=== PATIENT | female | born 1940 | race Two or more races ===

== ENCOUNTER 2022-08-28 22:51 | Inpatient (IN) | payer OTHER ==
[~2022-08-28] VITALS: Ht 152.4 cm; Wt 62.2 kg
[2022-08-29] VITALS (8 sets, daily range): BP systolic 128–190; BP diastolic 46–67
[2022-08-29] MEDS ORDERED: ACETAMINOPHEN 325 MG TAB PO PRN (04:15)
[2022-08-29] MEDS ORDERED: ONDANSETRON HCL 4 MG/2 ML VIAL IV PRN (04:15)
[2022-08-29] MEDS ORDERED: DEXTROSE (50%) 50ML SYRG IV PRN ×2 (04:15→09:45)
[2022-08-29] MEDS ORDERED: ENOXAPARIN SOD 60 MG/0.6 ML SYRINGE SC ONE (05:00)
[2022-08-29 06:07] LABS: Basophils # (auto) 0 10 ^3/uL (0-0.2); Basophils % (auto) 0.5 % (0.0-2.0); Eosinophils # (auto) 0.1 10 ^3/uL (0-0.8); Eosinophils % (auto) 2.1 % (0.0-7.0); Hematocrit 36.8 % (36.0-46.0); Hemoglobin 12.2 g/dL (12.2-16.2); Lymphocytes # (auto) 2.5 10 ^3/uL (0.4-5.4); Lymphocytes % (auto) 36.6 % (10.0-50.0); Mean Corpuscular Hemoglobin 29.5 pg (28.0-32.0); Mean Corpuscular Hgb Conc. 33.3 g/dL (32.0-36.0); Mean Corpuscular Volume 88.6 fL (80.0-100.0); Monocytes # (auto) 0.3 10 ^3/uL (0-1.3); Monocytes % (auto) 4.5 % (0.0-12.0); Neutrophils # (auto) 3.9 10 ^3/uL (1.6-8.6); Neutrophils % (auto) 56.3 % (37.0-80.0); Red Blood Cells 4.15 10^6/uL (4.0-5.20); Red Cell Distribution Width 12.3 % (11.8-14.3); White Blood Cell 6.9 10^3/uL (4.4-10.8)
[2022-08-29 06:29] LABS: BUN/Creatinine Ratio 19.1; Calcium 9.6 mg/dL (8.5-10.1); Potassium 3.8 mmol/L (3.5-5.1)
[2022-08-29] MEDS: SODIUM CHLORIDE 0.9% 1,000 ML IV SCH ×2 (06:37→21:04)
[2022-08-29] MEDS ORDERED: InsuLIN REG 1unit/0.01ml Soln (100units/ml) SC SCH ×2 (07:00→22:00)
[2022-08-29] MEDS ORDERED: ACCU-CHEK COMFORT CURVE STRIP VI SCH (07:00)
[2022-08-29] MEDS: HYDROcodone-ACET 5/325MG TAB PO PRN (08:38)
[2022-08-29] MEDS ORDERED: ENOXAPARIN SOD 60 MG/0.6 ML SYRINGE SC SCH ×2 (10:00)
[2022-08-29 10:24] LABS: Cholesterol 209 mg/dL (< 200); HDL Cholesterol 44 mg/dL (40-59); LDL Cholesterol 129 mg/dL (< 100); Triglycerides 269 mg/dL (< 150)
[2022-08-29 10:28] LABS: Urine Bacteria FEW /hpf (None Seen); Urine Blood Negative /uL (Negative); Urine Specific Gravity 1.007 (1.001-1.035); Urine WBC 6 /hpf (0 - 5)
[2022-08-29] MEDS: GABAPENTIN 300 MG CAP PO SCH ×2 (11:25→22:16)
[2022-08-29] MEDS: PANTOPRAZOLE 40 MG TAB PO SCH (11:25)
[2022-08-29] MEDS: SPIRONOLACTONE 25 MG TAB PO SCH (11:26)
[2022-08-29] MEDS: METOPROLOL SUCCINATE XL 50 MG TAB PO SCH (11:26)
[2022-08-29] MEDS: ACCU-CHEK COMFORT CURVE STRIP VI SCH ×3 (11:27→22:10)
[2022-08-29] MEDS: InsuLIN REG 1unit/0.01ml Soln (100units/ml) SC SCH ×3 (11:43→22:00)
[2022-08-29 12:05] LABS: INR 1.13 (0.9-1.15); Partial Thromboplastin Time 30.8 sec (24.6-33.4)
[2022-08-29] MEDS: hydrALAZINE HCL 20 MG/ML VL IV PRN ×2 (13:02→22:16)
[2022-08-29] MEDS: ATORVASTATIN 20 MG TAB PO SCH (22:16)
[2022-08-30 05:00] VITALS: BP 132/51
[2022-08-30 05:47] LABS: Basophils # (auto) 0 10 ^3/uL (0-0.2); Basophils % (auto) 0.7 % (0.0-2.0); Eosinophils # (auto) 0.1 10 ^3/uL (0-0.8); Eosinophils % (auto) 1.9 % (0.0-7.0); Hematocrit 32.7 % (36.0-46.0); Hemoglobin 11.5 g/dL (12.2-16.2); Lymphocytes # (auto) 2.2 10 ^3/uL (0.4-5.4); Lymphocytes % (auto) 42.2 % (10.0-50.0); Mean Corpuscular Hemoglobin 30.9 pg (28.0-32.0); Mean Corpuscular Hgb Conc. 35.2 g/dL (32.0-36.0); Mean Corpuscular Volume 87.6 fL (80.0-100.0); Monocytes # (auto) 0.2 10 ^3/uL (0-1.3); Monocytes % (auto) 4.7 % (0.0-12.0); Neutrophils # (auto) 2.7 10 ^3/uL (1.6-8.6); Neutrophils % (auto) 50.5 % (37.0-80.0); Red Blood Cells 3.73 10^6/uL (4.0-5.20); Red Cell Distribution Width 12.2 % (11.8-14.3); White Blood Cell 5.3 10^3/uL (4.4-10.8)
[2022-08-30 06:11] LABS: Albumin 3.4 g/dL (3.4-5.0); Calcium 8.8 mg/dL (8.5-10.1); Potassium 3.7 mmol/L (3.5-5.1)
[2022-08-30 06:15] LABS: BUN/Creatinine Ratio 15.8; Bilirubin, Total 1.9 mg/dL (0.2-1.0)
[2022-08-30] MEDS: ACCU-CHEK COMFORT CURVE STRIP VI SCH ×4 (06:28→22:25)
[2022-08-30] MEDS: InsuLIN REG 1unit/0.01ml Soln (100units/ml) SC SCH ×4 (06:28→22:28)
[2022-08-30] MEDS: HYDROcodone-ACET 5/325MG TAB PO PRN ×2 (06:35→22:26)
[2022-08-30] MEDS ORDERED: EMPA1TAB3 PO (10:01)
[2022-08-30] MEDS ORDERED: ROSU20TA14 PO (10:02)
[2022-08-30] MEDS ORDERED: METO-159 PO (10:03)
[2022-08-30] MEDS ORDERED: CLOP75TA70 PO (10:03)
[2022-08-30] MEDS ORDERED: GABA300C10 PO (10:05)
[2022-08-30] MEDS ORDERED: SPIR25TA8 PO (10:06)
[2022-08-30] MEDS ORDERED: METF-370 PO (10:06)
[2022-08-30] MEDS ORDERED: GLIP10TA9 PO (10:07)
[2022-08-30] MEDS: METOPROLOL SUCCINATE XL 50 MG TAB PO SCH (10:09)
[2022-08-30] MEDS: PANTOPRAZOLE 40 MG TAB PO SCH (10:09)
[2022-08-30] MEDS: SPIRONOLACTONE 25 MG TAB PO SCH (10:10)
[2022-08-30] MEDS: GABAPENTIN 300 MG CAP PO SCH ×2 (10:10→22:24)
[2022-08-30] MEDS ORDERED: INSU1INJ3 SC (10:14)
[2022-08-30] MEDS: DOCUSATE SOD 100 MG CAP PO PRN (10:37)
[2022-08-30] MEDS: hydrALAZINE HCL 20 MG/ML VL IV PRN ×2 (12:27→22:25)
[2022-08-30] MEDS: SODIUM CHLORIDE 0.9% 1,000 ML IV SCH (13:35)
[2022-08-30 14:15] VITALS: BP 162/58
[2022-08-30 18:04] VITALS: BP 162/58
[2022-08-30 22:00] VITALS: BP 170/56
[2022-08-30] MEDS: ATORVASTATIN 20 MG TAB PO SCH (22:24)
[2022-08-31 05:00] VITALS: BP 169/59
[2022-08-31] MEDS: ACCU-CHEK COMFORT CURVE STRIP VI SCH ×4 (05:59→21:55)
[2022-08-31] MEDS: SODIUM CHLORIDE 0.9% 1,000 ML IV SCH ×2 (05:59→22:55)
[2022-08-31] MEDS: EMPAGLIFLOZIN 10 MG TAB PO SCH (06:27)
[2022-08-31] MEDS: InsuLIN REG 1unit/0.01ml Soln (100units/ml) SC SCH ×4 (06:27→22:04)
[2022-08-31] MEDS: hydrALAZINE HCL 20 MG/ML VL IV PRN ×3 (06:28→21:55)
[2022-08-31] MEDS: HYDROcodone-ACET 5/325MG TAB PO PRN ×2 (06:29→08:48)
[2022-08-31 08:00] VITALS: BP 147/55
[2022-08-31] MEDS: MORPHINE SULFATE INJ 2 MG/ml SYRG IV PRN ×2 (08:54→12:57)
[2022-08-31] MEDS: SPIRONOLACTONE 25 MG TAB PO SCH (10:15)
[2022-08-31] MEDS: GABAPENTIN 300 MG CAP PO SCH ×2 (10:15→21:54)
[2022-08-31] MEDS: PANTOPRAZOLE 40 MG TAB PO SCH (10:16)
[2022-08-31] MEDS: METOPROLOL SUCCINATE XL 50 MG TAB PO SCH (10:16)
[2022-08-31] MEDS: DOCUSATE SOD 100 MG CAP PO PRN (10:17)
[2022-08-31] MEDS: LISINOPRIL 10 MG TAB PO SCH (10:17)
[2022-08-31 14:42] VITALS: BP 184/57
[2022-08-31 17:40] VITALS: BP 142/54
[2022-08-31] MEDS: ATORVASTATIN 20 MG TAB PO SCH (21:54)
[2022-08-31 22:00] VITALS: BP 153/63
[2022-09-01] VITALS (13 sets, daily range): BP systolic 101–165; BP diastolic 49–60
[2022-09-01 05:35] LABS: Basophils # (auto) 0 10 ^3/uL (0-0.2); Basophils % (auto) 0.5 % (0.0-2.0); Eosinophils # (auto) 0.2 10 ^3/uL (0-0.8); Eosinophils % (auto) 2.6 % (0.0-7.0); Hematocrit 32.8 % (36.0-46.0); Hemoglobin 11.5 g/dL (12.2-16.2); Lymphocytes # (auto) 2.2 10 ^3/uL (0.4-5.4); Lymphocytes % (auto) 36.1 % (10.0-50.0); Mean Corpuscular Hemoglobin 30.7 pg (28.0-32.0); Mean Corpuscular Volume 87.7 fL (80.0-100.0); Monocytes # (auto) 0.4 10 ^3/uL (0-1.3); Monocytes % (auto) 6.2 % (0.0-12.0); Neutrophils # (auto) 3.4 10 ^3/uL (1.6-8.6); Neutrophils % (auto) 54.6 % (37.0-80.0); Nucleated Red Blood Cells % 0.1 %; Red Blood Cells 3.74 10^6/uL (4.0-5.20); Red Cell Distribution Width 12.4 % (11.8-14.3); White Blood Cell 6.2 10^3/uL (4.4-10.8)
[2022-09-01 05:57] LABS: INR 1.11 (0.9-1.15); Partial Thromboplastin Time 26.2 sec (24.6-33.4)
[2022-09-01 06:00] LABS: Albumin 3.4 g/dL (3.4-5.0); BUN/Creatinine Ratio 15.3; Potassium 3.5 mmol/L (3.5-5.1)
[2022-09-01 06:14] LABS: Bilirubin, Total 1.3 mg/dL (0.2-1.0); Total Protein 6.3 g/dL (6.4-8.2)
[2022-09-01] MEDS: EMPAGLIFLOZIN 10 MG TAB PO SCH (06:14)
[2022-09-01] MEDS: InsuLIN REG 1unit/0.01ml Soln (100units/ml) SC SCH ×4 (06:36→22:00)
[2022-09-01] MEDS: ACCU-CHEK COMFORT CURVE STRIP VI SCH ×4 (06:36→21:55)
[2022-09-01] MEDS: SPIRONOLACTONE 25 MG TAB PO SCH (10:38)
[2022-09-01] MEDS: METOPROLOL SUCCINATE XL 50 MG TAB PO SCH (10:39)
[2022-09-01] MEDS: GABAPENTIN 300 MG CAP PO SCH ×2 (10:39→21:54)
[2022-09-01] MEDS: LISINOPRIL 10 MG TAB PO SCH (10:39)
[2022-09-01] MEDS: PANTOPRAZOLE 40 MG TAB PO SCH (10:39)
[2022-09-01] MEDS ORDERED: MIDAZOLAM HCL 2MG/2ML 2ml VIAL (1mg/ml) ONE (12:05)
[2022-09-01] MEDS ORDERED: ANGIOMAX 250 MG VIAL IV ONE (12:05)
[2022-09-01] MEDS ORDERED: fentaNYL CITRATE 100 MCG/2 ML VL ONE (12:05)
[2022-09-01] MEDS ORDERED: IODIXANOL 320MG/ML 100ML BTL IV ONE (12:06)
[2022-09-01] MEDS ORDERED: SODIUM CHL 0.9% 50 ML ONE (12:06)
[2022-09-01] MEDS ORDERED: LIDOCAINE 2%HCL (LOCAL ANESTH.) INJ 20ML MDV ONE (12:06)
[2022-09-01] MEDS ORDERED: hydrALAZINE HCL 20 MG/ML VL ONE (13:08)
[2022-09-01] MEDS ORDERED: ASPirin 81 mg TAB ONE (13:38)
[2022-09-01] MEDS ORDERED: CLOPIDOGREL BISULFATE 75 MG TAB ONE (13:38)
[2022-09-01] MEDS: SODIUM CHLORIDE 0.9% 1,000 ML IV SCH (15:30)
[2022-09-01] MEDS ORDERED: POTASSIUM CHL 20 Meq TABLET PO ONE (16:15)
[2022-09-01] MEDS ORDERED: ERGOCALCIFEROL 50,000 UNIT(1.25MG) CAP PO SCH (16:15)
[2022-09-01] MEDS: hydrALAZINE HCL 20 MG/ML VL IV PRN (21:54)
[2022-09-01] MEDS: ATORVASTATIN 20 MG TAB PO SCH (21:54)
[2022-09-02 00:10] VITALS: BP 146/45
[2022-09-02 05:25] VITALS: BP 163/48
[2022-09-02] MEDS: EMPAGLIFLOZIN 10 MG TAB PO SCH (06:15)
[2022-09-02] MEDS: hydrALAZINE HCL 20 MG/ML VL IV PRN (06:16)
[2022-09-02] MEDS: ACCU-CHEK COMFORT CURVE STRIP VI SCH ×2 (06:16→11:30)
[2022-09-02] MEDS: InsuLIN REG 1unit/0.01ml Soln (100units/ml) SC SCH ×2 (06:21→11:30)
[2022-09-02 06:36] LABS: Basophils # (auto) 0 10 ^3/uL (0-0.2); Basophils % (auto) 0.7 % (0.0-2.0); Eosinophils # (auto) 0.1 10 ^3/uL (0-0.8); Eosinophils % (auto) 2.3 % (0.0-7.0); Hematocrit 32.3 % (36.0-46.0); Hemoglobin 11.5 g/dL (12.2-16.2); Lymphocytes # (auto) 1.8 10 ^3/uL (0.4-5.4); Lymphocytes % (auto) 27.9 % (10.0-50.0); Mean Corpuscular Hemoglobin 31.4 pg (28.0-32.0); Mean Corpuscular Hgb Conc. 35.7 g/dL (32.0-36.0); Monocytes # (auto) 0.4 10 ^3/uL (0-1.3); Monocytes % (auto) 6.2 % (0.0-12.0); Neutrophils % (auto) 62.9 % (37.0-80.0); Nucleated Red Blood Cells % 0.1 %; Red Blood Cells 3.67 10^6/uL (4.0-5.20); Red Cell Distribution Width 12.2 % (11.8-14.3); White Blood Cell 6.3 10^3/uL (4.4-10.8)
[2022-09-02 06:45] LABS: Albumin 3.5 g/dL (3.4-5.0); Calcium 8.9 mg/dL (8.5-10.1); Potassium 3.5 mmol/L (3.5-5.1)
[2022-09-02 06:50] LABS: BUN/Creatinine Ratio 16.5; Bilirubin, Total 1.5 mg/dL (0.2-1.0); Total Protein 6.5 g/dL (6.4-8.2)
[2022-09-02] MEDS: SODIUM CHLORIDE 0.9% 1,000 ML IV SCH (08:15)
[2022-09-02 09:00] VITALS: BP 130/59
[2022-09-02] MEDS ORDERED: CLOPIDOGREL BISULFATE 75 MG TAB PO SCH (10:00)
[2022-09-02] MEDS ORDERED: ASPirin 81 mg TAB PO SCH (10:00)
[2022-09-02] MEDS: METOPROLOL SUCCINATE XL 50 MG TAB PO SCH (11:50)
[2022-09-02] MEDS: SPIRONOLACTONE 25 MG TAB PO SCH (11:50)
[2022-09-02] MEDS: LISINOPRIL 10 MG TAB PO SCH (11:50)
[2022-09-02] MEDS: GABAPENTIN 300 MG CAP PO SCH (11:50)
[2022-09-02 13:00] VITALS: BP 125/47
[2022-09-02] MEDS ORDERED: ASPI-325 PO (13:06)
[2022-09-02] MEDS ORDERED: CLOP75TA70 PO (13:06)
[2022-09-02] MEDS ORDERED: ERGO1CAP23 PO (13:06)
[2022-09-02] MEDS ORDERED: ROSU1TAB15 PO (13:06)
[2022-09-02] MEDS ORDERED: LISI-716 PO (13:06)
== END 2022-09-02 17:01 | disposition home or self-care (01) | DRG 253 ==
LOC: WEST WING 08-29 00:44
PROVIDERS: ADMIT Nurse Practitioner Family; ATTEND Internal Medicine
PROC: B41G1ZZ Fluoroscopy of Left Lower Extremity Arteries using Low Osmolar Contrast (ICD-10-PCS; principal; 2022-09-01)
PROC: 047M3ZZ Dilation of Right Popliteal Artery, Percutaneous Approach (ICD-10-PCS; 2022-09-01)
PROC: 047P3ZZ Dilation of Right Anterior Tibial Artery, Percutaneous Approach (ICD-10-PCS; 2022-09-01)
PROC: 047T3ZZ Dilation of Right Peroneal Artery, Percutaneous Approach (ICD-10-PCS; 2022-09-01)
PROC: B41F1ZZ Fluoroscopy of Right Lower Extremity Arteries using Low Osmolar Contrast (ICD-10-PCS; 2022-09-01)
DX: I70.211 Atherosclerosis of native arteries of extremities with intermittent claudication, right leg (principal); I50.22 Chronic systolic (congestive) heart failure; E11.9 Type 2 diabetes mellitus without complications; Z20.822 Contact with and (suspected) exposure to COVID-19; E55.9 Vitamin D deficiency, unspecified; E07.9 Disorder of thyroid, unspecified; D64.9 Anemia, unspecified; E78.5 Hyperlipidemia, unspecified; I11.0 Hypertensive heart disease with heart failure; Z82.49 Family history of ischemic heart disease and other diseases of the circulatory system; Z79.84 Long term (current) use of oral hypoglycemic drugs; Z95.0 Presence of cardiac pacemaker
CPT/HCPCS: 36415; 71045; 80048; 80053; 80061; 81001; 82043; 82306; 82607; 82962; 83036; 84439; 84443; 85025; 85610; 85730; 86850; 86900; 86901; 87426; 93306; 93925; 99152; 99153; C1725; G0378; J1815; J2250; Q9967

== ENCOUNTER 2022-10-31 07:43 | Day surgery (SDC) | payer OTHER ==
[2022-10-29 13:41] LABS: Basophils # (auto) 0 10 ^3/uL (0-0.2); Eosinophils # (auto) 0.2 10 ^3/uL (0-0.8); Eosinophils % (auto) 3.7 % (0.0-7.0); Hematocrit 34.6 % (36.0-46.0); Hemoglobin 11.7 g/dL (12.2-16.2); Lymphocytes # (auto) 2.3 10 ^3/uL (0.4-5.4); Lymphocytes % (auto) 47.3 % (10.0-50.0); Mean Corpuscular Hemoglobin 29.8 pg (28.0-32.0); Mean Corpuscular Hgb Conc. 33.8 g/dL (32.0-36.0); Mean Corpuscular Volume 88.2 fL (80.0-100.0); Monocytes # (auto) 0.3 10 ^3/uL (0-1.3); Monocytes % (auto) 6.2 % (0.0-12.0); Neutrophils % (auto) 41.8 % (37.0-80.0); Nucleated Red Blood Cells % 0.1 %; Red Blood Cells 3.92 10^6/uL (4.0-5.20); Red Cell Distribution Width 13.3 % (11.8-14.3); White Blood Cell 4.8 10^3/uL (4.4-10.8)
[2022-10-29 14:15] LABS: INR 1.07 (0.9-1.15); Partial Thromboplastin Time 26.9 sec (24.6-33.4)
[2022-10-29 14:25] LABS: Potassium 3.7 mmol/L (3.5-5.1)
[2022-10-29 14:33] LABS: Albumin 3.9 g/dL (3.4-5.0); Bilirubin, Total 0.9 mg/dL (0.2-1.0); Calcium 9.5 mg/dL (8.5-10.1); Total Protein 7.5 g/dL (6.4-8.2)
[~2022-10-31] VITALS: Ht 152.4 cm; Wt 61.2 kg
[2022-10-31] VITALS (8 sets, daily range): BP systolic 139–167; BP diastolic 55–66
[~2022-10-31 07:43] MED LIST: ASPI-325 PO; CLOP75TA70 PO; EMPA1TAB PO; ERGO1CAP23 PO; GABA300C10 PO; GLIP10TA9 PO; LISI-716 PO; METO-159 PO; PANT40T PO; ROSU1TAB15 PO; SPIR25TA8 PO
[2022-10-31] MEDS ORDERED: MIDAZOLAM HCL 2MG/2ML 2ml VIAL (1mg/ml) ONE (08:37)
[2022-10-31] MEDS ORDERED: SODIUM CHL 0.9% 50 ML ONE (08:37)
[2022-10-31] MEDS ORDERED: fentaNYL CITRATE 100 MCG/2 ML VL ONE (08:37)
[2022-10-31] MEDS ORDERED: ANGIOMAX 250 MG VIAL IV ONE (08:37)
[2022-10-31] MEDS ORDERED: LIDOCAINE 2%HCL (LOCAL ANESTH.) INJ 10ml MDV ONE (08:46)
== END 2022-10-31 12:50 | disposition home or self-care (01) ==
LOC: CATH 07:43
PROVIDERS: ATTEND Internal Medicine
DX: I73.9 Peripheral vascular disease, unspecified (principal); I70.8 Atherosclerosis of other arteries; I10 Essential (primary) hypertension; E78.5 Hyperlipidemia, unspecified; E11.9 Type 2 diabetes mellitus without complications; Z79.899 Other long term (current) drug therapy; Z79.82 Long term (current) use of aspirin; Z79.84 Long term (current) use of oral hypoglycemic drugs; Z98.890 Other specified postprocedural states; Z20.822 Contact with and (suspected) exposure to COVID-19
CPT/HCPCS: 36415; 37225; 37229; 80053; 85025; 85610; 85730; C1725; C1760; C1769; C1887; C1894; J0583; J1644; J2001; J2250; J3010; U0003; 99152; 99153

== ENCOUNTER → 2022-12-01 | Outpatient (CLI) | payer OTHER | END | disposition home or self-care (01) | LOC: Rad HDHVI 12:57 | PROVIDERS: ATTEND Internal Medicine Cardiovascular Disease | DX: I73.9 Peripheral vascular disease, unspecified (principal) | CPT/HCPCS: 93926 ==

== ENCOUNTER → 2022-12-03 | Outpatient (CLI) | payer OTHER | END | disposition home or self-care (01) | LOC: Rad HDHVI 09:59 | PROVIDERS: ATTEND Internal Medicine Cardiovascular Disease | DX: I08.3 Combined rheumatic disorders of mitral, aortic and tricuspid valves (principal); I11.9 Hypertensive heart disease without heart failure; E78.5 Hyperlipidemia, unspecified | CPT/HCPCS: 93306 ==

== ENCOUNTER → 2022-12-05 | Outpatient (CLI) | payer OTHER ==
[~2022-12-05] VITALS: Ht 160 cm; Wt 61.2 kg
[~2022-12-05] MED LIST changes: +ADENOSINE 51 MG in GIVE UN-DILUTED 0 ML IV ONE; +ADENOSINE 90 MG/30 ML INJ IV ONE
== END | disposition home or self-care (01) ==
LOC: Rad HDHVI 09:29
PROVIDERS: ATTEND Internal Medicine Cardiovascular Disease
DX: I11.0 Hypertensive heart disease with heart failure (principal); I50.22 Chronic systolic (congestive) heart failure; I25.10 Atherosclerotic heart disease of native coronary artery without angina pectoris; E11.22 Type 2 diabetes mellitus with diabetic chronic kidney disease; I73.9 Peripheral vascular disease, unspecified; E78.5 Hyperlipidemia, unspecified; Z95.0 Presence of cardiac pacemaker
CPT/HCPCS: 78452; 93005; 96374; 96375; A9500; J0153

== ENCOUNTER 2023-01-13 06:36 | Inpatient (IN) | payer OTHER ==
[~2023-01-13] VITALS: Ht 157.5 cm; Wt 63.0 kg
[~2023-01-13 06:36] MED LIST changes: -ADENOSINE 51 MG in GIVE UN-DILUTED 0 ML IV ONE; -ADENOSINE 90 MG/30 ML INJ IV ONE
[2023-01-13] MEDS ORDERED: SODIUM CHLORIDE 0.9% 1,000 ML IV ONE (12:45)
[2023-01-13 13:47] LABS: Basophils # (auto) 0 10 ^3/uL (0-0.2); Basophils % (auto) 0.6 % (0.0-2.0); Eosinophils # (auto) 0.1 10 ^3/uL (0-0.8); Eosinophils % (auto) 2.6 % (0.0-7.0); Hematocrit 36.2 % (36.0-46.0); Lymphocytes # (auto) 1.5 10 ^3/uL (0.4-5.4); Lymphocytes % (auto) 27.1 % (10.0-50.0); Mean Corpuscular Hemoglobin 29.7 pg (28.0-32.0); Mean Corpuscular Hgb Conc. 33.2 g/dL (32.0-36.0); Mean Corpuscular Volume 89.5 fL (80.0-100.0); Monocytes # (auto) 0.2 10 ^3/uL (0-1.3); Monocytes % (auto) 3.9 % (0.0-12.0); Neutrophils # (auto) 3.8 10 ^3/uL (1.6-8.6); Neutrophils % (auto) 65.8 % (37.0-80.0); Nucleated Red Blood Cells % 0.1 %; Red Blood Cells 4.04 10^6/uL (4.0-5.20); Red Cell Distribution Width 13.1 % (11.8-14.3); White Blood Cell 5.7 10^3/uL (4.4-10.8)
[2023-01-13 14:04] LABS: INR 1.05 (0.9-1.15); Partial Thromboplastin Time 27.3 sec (24.6-33.4)
[2023-01-13 14:07] LABS: Calcium 9.2 mg/dL (8.5-10.1); Potassium 4.3 mmol/L (3.5-5.1)
[2023-01-13 14:11] LABS: BUN/Creatinine Ratio 19.1 (10.0-20.0); Bilirubin, Total 0.9 mg/dL (0.2-1.0)
[2023-01-13] MEDS ORDERED: HEPARIN SODIUM (PORCINE) 5000 UNITS/ML 1ML VIAL IV ONE (16:00)
[2023-01-13] MEDS ORDERED: HEPARIN DRIP/D5W 100UNITS/ML 250 ML IV SCH (16:00)
[2023-01-13] MEDS ORDERED: SODIUM CHLORIDE 0.9% 1,000 ML IV SCH (16:15)
[2023-01-13] MEDS ORDERED: HYDROcodone-ACET 5/325MG TAB PO PRN (16:15)
[2023-01-13] MEDS ORDERED: ACETAMINOPHEN 325 MG TAB PO PRN ×2 (16:15→16:45)
[2023-01-13] MEDS ORDERED: hydrALAZINE HCL 20 MG/ML VL IV PRN (16:45)
[2023-01-13] MEDS ORDERED: MORPHINE SULFATE INJ 2 MG/ml SYRG IV PRN (16:45)
[2023-01-13] MEDS ORDERED: NITROGLYCERIN 0.4 MG SL TAB SL PRN (16:45)
[2023-01-13] MEDS ORDERED: PANTOPRAZOLE 40 MG/10 ML VIAL INJ IV ONE (17:00)
[2023-01-13] MEDS: SODIUM CHLORIDE 0.9% 1,000 ML IV SCH (19:30)
[2023-01-13] MEDS: HYDROcodone-ACET 5/325MG TAB PO PRN (19:31)
[2023-01-13] MEDS: hydrALAZINE HCL 20 MG/ML VL IV PRN (20:08)
[2023-01-13 23:01] LABS: Urine Bacteria FEW /hpf (None Seen); Urine Blood Negative /uL (Negative); Urine Specific Gravity 1.006 (1.001-1.035); Urine WBC 14 /hpf (0 - 5)
[2023-01-14] VITALS (10 sets, daily range): BP systolic 115–173; BP diastolic 48–71
[2023-01-14 06:29] LABS: Basophils # (auto) 0 10 ^3/uL (0-0.2); Basophils % (auto) 0.8 % (0.0-2.0); Eosinophils # (auto) 0.3 10 ^3/uL (0-0.8); Eosinophils % (auto) 4.7 % (0.0-7.0); Hematocrit 33.6 % (36.0-46.0); Hemoglobin 11.6 g/dL (12.2-16.2); Mean Corpuscular Hemoglobin 30.6 pg (28.0-32.0); Mean Corpuscular Hgb Conc. 34.6 g/dL (32.0-36.0); Mean Corpuscular Volume 88.4 fL (80.0-100.0); Monocytes # (auto) 0.4 10 ^3/uL (0-1.3); Monocytes % (auto) 6.8 % (0.0-12.0); Neutrophils # (auto) 2.8 10 ^3/uL (1.6-8.6); Neutrophils % (auto) 51.7 % (37.0-80.0); Nucleated Red Blood Cells % 0.1 %; White Blood Cell 5.4 10^3/uL (4.4-10.8)
[2023-01-14 06:39] LABS: Potassium 3.9 mmol/L (3.5-5.1)
[2023-01-14 06:45] LABS: Albumin 3.5 g/dL (3.4-5.0); BUN/Creatinine Ratio 17.9 (10.0-20.0); Bilirubin, Total 1.2 mg/dL (0.2-1.0); Calcium 8.6 mg/dL (8.5-10.1); Total Protein 6.6 g/dL (6.4-8.2)
[2023-01-14] MEDS ORDERED: LIDOCAINE 2%HCL (LOCAL ANESTH.) INJ 20ML MDV ONE ×2 (12:08→12:41)
[2023-01-14] MEDS ORDERED: SODIUM CHL 0.9% 0 ML ONE (12:16)
[2023-01-14] MEDS ORDERED: fentaNYL CITRATE 100 MCG/2 ML VL ONE (12:16)
[2023-01-14] MEDS ORDERED: MIDAZOLAM HCL 2MG/2ML 2ml VIAL (1mg/ml) ONE (12:16)
[2023-01-14] MEDS ORDERED: ANGIOMAX 250 MG VIAL IV ONE (12:16)
[2023-01-14] MEDS ORDERED: HEPARIN SODIUM (PORCINE) 5000 UNITS/ML 1ML VIAL ONE (13:03)
[2023-01-14] MEDS ORDERED: CLOPIDOGREL BISULFATE 75 MG TAB ONE (13:54)
[2023-01-14] MEDS: PANTOPRAZOLE 40 MG/10 ML VIAL INJ IV SCH (14:45)
[2023-01-14] MEDS: hydrALAZINE HCL 20 MG/ML VL IV PRN (14:46)
[2023-01-14] MEDS: SODIUM CHLORIDE 0.9% 1,000 ML IV SCH (14:47)
[2023-01-14] MEDS ORDERED: METF-370 PO (17:04)
[2023-01-14] MEDS ORDERED: METO1TAB9 PO (17:04)
[2023-01-14] MEDS ORDERED: ATOR20TA50 PO (17:04)
[2023-01-14] MEDS: HYDROcodone-ACET 5/325MG TAB PO PRN (17:55)
[2023-01-14] MEDS ORDERED: LEVO25TA6 PO (18:01)
[2023-01-14] MEDS: ATORVASTATIN 20 MG TAB PO SCH (22:08)
[2023-01-14] MEDS: METOPROLOL TARTRATE 50 MG TAB PO SCH (22:09)
[2023-01-14] MEDS: RIVAROXABAN 10 MG TAB PO SCH (22:10)
[2023-01-15] MEDS: SODIUM CHLORIDE 0.9% 1,000 ML IV SCH ×2 (02:05→22:53)
[2023-01-15 05:00] VITALS: BP 141/70
[2023-01-15] MEDS: EMPAGLIFLOZIN 10 MG TAB PO SCH (06:28)
[2023-01-15 06:35] LABS: Basophils # (auto) 0 10 ^3/uL (0-0.2); Basophils % (auto) 0.8 % (0.0-2.0); Eosinophils # (auto) 0.1 10 ^3/uL (0-0.8); Eosinophils % (auto) 1.9 % (0.0-7.0); Hematocrit 31.5 % (36.0-46.0); Hemoglobin 10.8 g/dL (12.2-16.2); Lymphocytes # (auto) 1.5 10 ^3/uL (0.4-5.4); Lymphocytes % (auto) 31.3 % (10.0-50.0); Mean Corpuscular Hemoglobin 30.6 pg (28.0-32.0); Mean Corpuscular Hgb Conc. 34.1 g/dL (32.0-36.0); Mean Corpuscular Volume 89.7 fL (80.0-100.0); Monocytes # (auto) 0.4 10 ^3/uL (0-1.3); Monocytes % (auto) 8.6 % (0.0-12.0); Neutrophils # (auto) 2.7 10 ^3/uL (1.6-8.6); Neutrophils % (auto) 57.4 % (37.0-80.0); Nucleated Red Blood Cells % 0.2 %; Red Blood Cells 3.52 10^6/uL (4.0-5.20); Red Cell Distribution Width 12.9 % (11.8-14.3); White Blood Cell 4.7 10^3/uL (4.4-10.8)
[2023-01-15 06:49] LABS: BUN/Creatinine Ratio 18.8 (10.0-20.0); Calcium 9.3 mg/dL (8.5-10.1); Potassium 4.5 mmol/L (3.5-5.1)
[2023-01-15 09:00] VITALS: BP 141/69
[2023-01-15] MEDS: PANTOPRAZOLE 40 MG/10 ML VIAL INJ IV SCH (09:21)
[2023-01-15] MEDS: LISINOPRIL 10 MG TAB PO SCH (09:22)
[2023-01-15] MEDS: METOPROLOL TARTRATE 50 MG TAB PO SCH ×2 (09:22→22:52)
[2023-01-15] MEDS: HYDROcodone-ACET 5/325MG TAB PO PRN (09:30)
[2023-01-15] MEDS: RIVAROXABAN 10 MG TAB PO SCH ×2 (10:00→22:00)
[2023-01-15] MEDS: CLOPIDOGREL BISULFATE 75 MG TAB PO SCH (10:08)
[2023-01-15 12:48] VITALS: BP 138/64
[2023-01-15 13:12] LABS: Hepatitis C Antibody Negative (Negative)
[2023-01-15 17:00] VITALS: BP 133/57
[2023-01-15 22:00] VITALS: BP 135/55
[2023-01-15] MEDS: ATORVASTATIN 20 MG TAB PO SCH (22:51)
[2023-01-16 05:00] VITALS: BP 121/59
[2023-01-16] MEDS: EMPAGLIFLOZIN 10 MG TAB PO SCH (06:42)
[2023-01-16 09:00] VITALS: BP 146/61
[2023-01-16] MEDS: PANTOPRAZOLE 40 MG/10 ML VIAL INJ IV SCH (09:47)
[2023-01-16] MEDS: METOPROLOL TARTRATE 50 MG TAB PO SCH (09:47)
[2023-01-16] MEDS: LISINOPRIL 10 MG TAB PO SCH (09:48)
[2023-01-16] MEDS: CLOPIDOGREL BISULFATE 75 MG TAB PO SCH (09:48)
[2023-01-16] MEDS: RIVAROXABAN 10 MG TAB PO SCH (09:48)
[2023-01-16 09:57] VITALS: BP 141/59
[2023-01-16] MEDS: SODIUM CHLORIDE 0.9% 1,000 ML IV SCH (11:25)
[2023-01-16 12:50] VITALS: BP 149/71
== END 2023-01-16 14:10 | disposition home or self-care (01) | DRG 254 ==
LOC: ER 06:36 → TELE 16:35 → TELE-WESTW 01-14 15:49
PROVIDERS: ADMIT Nurse Practitioner Family; ATTEND Internal Medicine
PROC: B41F1ZZ Fluoroscopy of Right Lower Extremity Arteries using Low Osmolar Contrast (ICD-10-PCS; principal; 2023-01-14)
PROC: B41G1ZZ Fluoroscopy of Left Lower Extremity Arteries using Low Osmolar Contrast (ICD-10-PCS; 2023-01-14)
PROC: 047T3ZZ Dilation of Right Peroneal Artery, Percutaneous Approach (ICD-10-PCS; 2023-01-14)
PROC: 047M34Z Dilation of Right Popliteal Artery with Drug-eluting Intraluminal Device, Percutaneous Approach (ICD-10-PCS; 2023-01-14)
DX: I99.8 Other disorder of circulatory system (principal); E78.5 Hyperlipidemia, unspecified; E11.51 Type 2 diabetes mellitus with diabetic peripheral angiopathy without gangrene; E03.9 Hypothyroidism, unspecified; E11.42 Type 2 diabetes mellitus with diabetic polyneuropathy; I11.0 Hypertensive heart disease with heart failure; I50.22 Chronic systolic (congestive) heart failure; Z79.02 Long term (current) use of antithrombotics/antiplatelets; Z95.0 Presence of cardiac pacemaker; Z86.718 Personal history of other venous thrombosis and embolism; Z79.84 Long term (current) use of oral hypoglycemic drugs
CPT/HCPCS: 36415; 37226; 37228; 71045; 75716; 80048; 80053; 81001; 82550; 83036; 83605; 83880; 84484; 85025; 85610; 85730; 86803; 87340; 93926; 93970; 99152; 99153; C1725; C1769; C9113; G0378; J2250

== ENCOUNTER → 2023-03-26 | Outpatient (CLI) | payer OTHER ==
[~2023-03-26] MED LIST changes: +ATOR20TA50 PO; -EMPA1TAB PO; -GABA300C10 PO; -GLIP10TA9 PO; +LEVO25TA6 PO; -LISI-716 PO; +LISI10TA34 PO; +METF-370 PO; -METO-159 PO; +METO1TAB9 PO
[2023-03-26 09:47] LABS: Basophils # (auto) 0 10 ^3/uL (0-0.2); Basophils % (auto) 0.7 % (0.0-2.0); Eosinophils # (auto) 0.2 10 ^3/uL (0-0.8); Eosinophils % (auto) 4.5 % (0.0-7.0); Hematocrit 35.2 % (36.0-46.0); Hemoglobin 11.9 g/dL (12.2-16.2); Lymphocytes # (auto) 1.6 10 ^3/uL (0.4-5.4); Lymphocytes % (auto) 29.9 % (10.0-50.0); Mean Corpuscular Hemoglobin 29.8 pg (28.0-32.0); Mean Corpuscular Hgb Conc. 33.8 g/dL (32.0-36.0); Mean Corpuscular Volume 88.3 fL (80.0-100.0); Monocytes # (auto) 0.3 10 ^3/uL (0-1.3); Monocytes % (auto) 6.2 % (0.0-12.0); Neutrophils # (auto) 3.2 10 ^3/uL (1.6-8.6); Neutrophils % (auto) 58.7 % (37.0-80.0); Red Blood Cells 3.99 10^6/uL (4.0-5.20); Red Cell Distribution Width 12.4 % (11.8-14.3); White Blood Cell 5.5 10^3/uL (4.4-10.8)
[2023-03-26 10:41] LABS: Urine Bacteria NONE SEEN /hpf (None Seen); Urine Blood Negative /uL (Negative); Urine Specific Gravity 1.015 (1.001-1.035); Urine WBC 8 /hpf (0 - 5)
[2023-03-26 11:07] LABS: BUN/Creatinine Ratio 24.1 (10.0-20.0); Calcium 9.3 mg/dL (8.5-10.1); Potassium 3.7 mmol/L (3.5-5.1)
[2023-03-26 11:13] LABS: Albumin 3.9 g/dL (3.4-5.0); Bilirubin, Total 0.9 mg/dL (0.2-1.0); Total Protein 7.6 g/dL (6.4-8.2)
[2023-03-26 13:18] LABS: Micro Albumin 19.3 mg/L (0-30.0)
== END | disposition home or self-care (01) ==
LOC: LAB 09:28
PROVIDERS: ATTEND Student in an Organized Health Care Education/Training Program
DX: E11.9 Type 2 diabetes mellitus without complications (principal); I10 Essential (primary) hypertension
CPT/HCPCS: 36415; 80053; 80061; 81001; 82043; 82570; 83036; 84439; 84443; 85025

== ENCOUNTER 2023-04-26 02:58 | Inpatient (IN) | payer OTHER ==
[~2023-04-26] VITALS: Ht 160 cm; Wt 60.9 kg
[2023-04-26 03:10] VITALS: O2SAT 98
[2023-04-26] MEDS ORDERED: DEXTROSE (50%) 50ML SYRG IV ONE ×2 (03:30→03:45)
[2023-04-26] MEDS ORDERED: ACCU-CHEK COMFORT CURVE STRIP VI ONE ×2 (03:30→03:45)
[2023-04-26 03:42] LABS: Basophils # (auto) 0 10 ^3/uL (0-0.2); Basophils % (auto) 0.7 % (0.0-2.0); Eosinophils # (auto) 0.1 10 ^3/uL (0-0.8); Eosinophils % (auto) 1.1 % (0.0-7.0); Hematocrit 35.9 % (36.0-46.0); Hemoglobin 12.4 g/dL (12.2-16.2); Lymphocytes # (auto) 1.4 10 ^3/uL (0.4-5.4); Lymphocytes % (auto) 23.5 % (10.0-50.0); Mean Corpuscular Hemoglobin 29.8 pg (28.0-32.0); Mean Corpuscular Hgb Conc. 34.6 g/dL (32.0-36.0); Mean Corpuscular Volume 86.4 fL (80.0-100.0); Monocytes # (auto) 0.3 10 ^3/uL (0-1.3); Monocytes % (auto) 4.9 % (0.0-12.0); Neutrophils # (auto) 4.1 10 ^3/uL (1.6-8.6); Neutrophils % (auto) 69.8 % (37.0-80.0); Red Blood Cells 4.16 10^6/uL (4.0-5.20); Red Cell Distribution Width 12.8 % (11.8-14.3); White Blood Cell 5.9 10^3/uL (4.4-10.8)
[2023-04-26] MEDS ORDERED: hydrALAZINE HCL 20 MG/ML VL IV ONE (03:45)
[2023-04-26 04:10] LABS: Alanine Aminotransferase 19 U/L (7-40); Albumin 4.8 g/dL (3.2-4.8); Alkaline Phosphatase 128 U/L (46-116); Anion Gap 4.4 (5-15); Aspartate Aminotransferase 23 U/L (13-40); BUN/Creatinine Ratio 17.9 (10.0-20.0); Blood Urea Nitrogen 22 mg/dL (9-23); Calcium 10.2 mg/dL (8.7-10.4); Carbon Dioxide 26.6 mmol/L (20-30); Chloride 97 mmol/L (98-107); Glucose 193 mg/dL (74-106); Potassium 4.7 mmol/L (3.5-5.1); Sodium 128 mmol/L (136-145)
[2023-04-26 04:11] LABS: Bilirubin, Total 1.2 mg/dL (0.2-1.0); Total Protein 7.6 g/dL (5.7-8.2)
[2023-04-26 04:21] LABS: Urine Bacteria FEW /hpf (None Seen); Urine Blood Negative /uL (Negative); Urine Clarity Clear (Clear); Urine Color Colorless (Yellow); Urine Hyaline Cast FEW /lpf (0 - 2); Urine Protein, UAD Negative (Negative); Urine Specific Gravity 1.006 (1.001-1.035); Urine Urobilinogen Normal (Negative); Urine WBC 30 /hpf (0 - 5); Urine pH 6.5 (5.0-8.0)
[2023-04-26] MEDS ORDERED: LACTATED RINGER'S 1,000 ML IV ONE (05:15)
[2023-04-26] MEDS ORDERED: cefTRIAXone 1GM/50ML D5W 50 ML IV ONE (05:15)
[2023-04-26 05:19] VITALS: PULSE 65; RESP 17; O2SAT 99
[2023-04-26] MEDS ORDERED: DOCUSATE SOD 100 MG CAP PO PRN (07:30)
[2023-04-26] MEDS ORDERED: NITROGLYCERIN 0.4 MG SL TAB SL PRN (07:30)
[2023-04-26] MEDS ORDERED: DEXTROSE (50%) 50ML SYRG IV PRN (07:30)
[2023-04-26] MEDS ORDERED: ACETAMINOPHEN 325 MG TAB PO PRN (07:30)
[2023-04-26] MEDS ORDERED: ONDANSETRON HCL 4 MG/2 ML VIAL IV PRN (07:30)
[2023-04-26] MEDS ORDERED: MORPHINE SULFATE INJ 2 MG/ml SYRG IV PRN (07:30)
[2023-04-26 07:56] LABS: Basophils # (auto) 0 10 ^3/uL (0-0.2); Basophils % (auto) 0.7 % (0.0-2.0); Eosinophils # (auto) 0 10 ^3/uL (0-0.8); Eosinophils % (auto) 0.7 % (0.0-7.0); Hematocrit 34.5 % (36.0-46.0); Hemoglobin 11.8 g/dL (12.2-16.2); Lymphocytes # (auto) 1.9 10 ^3/uL (0.4-5.4); Lymphocytes % (auto) 33.9 % (10.0-50.0); Mean Corpuscular Hemoglobin 29.4 pg (28.0-32.0); Mean Corpuscular Hgb Conc. 34.1 g/dL (32.0-36.0); Mean Corpuscular Volume 86.3 fL (80.0-100.0); Monocytes # (auto) 0.3 10 ^3/uL (0-1.3); Monocytes % (auto) 5.7 % (0.0-12.0); Neutrophils # (auto) 3.4 10 ^3/uL (1.6-8.6); Nucleated Red Blood Cells % 0.1 %; Red Cell Distribution Width 12.5 % (11.8-14.3); White Blood Cell 5.7 10^3/uL (4.4-10.8)
[2023-04-26 08:29] LABS: Alanine Aminotransferase 17 U/L (7-40); Albumin 4.2 g/dL (3.2-4.8); Alkaline Phosphatase 102 U/L (46-116); Anion Gap 4.9 (5-15); Aspartate Aminotransferase 23 U/L (13-40); Blood Urea Nitrogen 21 mg/dL (9-23); Calcium 9.8 mg/dL (8.5-10.1); Carbon Dioxide 24.1 mmol/L (20-30); Chloride 104 mmol/L (98-107); Glucose 159 mg/dL (74-106)
[2023-04-26 08:30] LABS: Total Protein 6.8 g/dL (5.7-8.2)
[2023-04-26 08:31] LABS: Sodium 133 mmol/L (136-145)
[2023-04-26] MEDS: SODIUM CHLORIDE 0.9% 1,000 ML IV SCH (08:32)
[2023-04-26 08:41] VITALS: PULSE 60; RESP 16; O2SAT 96
[2023-04-26] MEDS: cefTRIAXone 1GM/50ML D5W 50 ML IV SCH (08:48)
[2023-04-26] MEDS: METOPROLOL TARTRATE 50 MG TAB PO SCH ×2 (09:40→22:17)
[2023-04-26] MEDS: LISINOPRIL 10 MG TAB PO SCH (09:41)
[2023-04-26] MEDS: ASPirin 81 mg TAB PO SCH (09:41)
[2023-04-26] MEDS: ACCU-CHEK COMFORT CURVE STRIP VI SCH ×3 (12:02→22:18)
[2023-04-26] MEDS: InsuLIN REG 1unit/0.01ml Soln (100units/ml) SC SCH ×3 (12:02→22:00)
[2023-04-26 19:30] VITALS: PULSE 65; RESP 12; O2SAT 96
[2023-04-26] MEDS ORDERED: LORazepam 2MG/ML-1ML VIAL IV PRN (19:30)
[2023-04-26] MEDS ORDERED: CLOPIDOGREL BISULFATE 75 MG TAB PO ONE (19:30)
[2023-04-26] MEDS: ATORVASTATIN 20 MG TAB PO SCH ×2 (20:51→20:52)
[2023-04-26 21:56] VITALS: BP 195/71; PULSE 60; RESP 16; RESP 18; TEMP 97.9; O2SAT 98
[2023-04-26] MEDS ORDERED: ATORVASTATIN 20 MG TAB PO SCH (22:00)
[2023-04-27] VITALS (9 sets, daily range): BP systolic 118–187; BP diastolic 54–73; PULSE 41–77; RESP 16–18; TEMP 97.8–98.1; O2SAT 92–99
[2023-04-27] MEDS: SODIUM CHLORIDE 0.9% 1,000 ML IV SCH ×2 (00:10→17:04)
[2023-04-27] MEDS: hydrALAZINE HCL 20 MG/ML VL IV PRN ×2 (00:15→13:02)
[2023-04-27 06:20] LABS: Basophils # (auto) 0 10 ^3/uL (0-0.2); Basophils % (auto) 0.6 % (0.0-2.0); Eosinophils # (auto) 0.2 10 ^3/uL (0-0.8); Eosinophils % (auto) 2.1 % (0.0-7.0); Hematocrit 34.7 % (36.0-46.0); Hemoglobin 12.2 g/dL (12.2-16.2); Lymphocytes # (auto) 1.9 10 ^3/uL (0.4-5.4); Mean Corpuscular Hemoglobin 30.1 pg (28.0-32.0); Mean Corpuscular Hgb Conc. 35.1 g/dL (32.0-36.0); Mean Corpuscular Volume 85.8 fL (80.0-100.0); Monocytes # (auto) 0.3 10 ^3/uL (0-1.3); Monocytes % (auto) 4.2 % (0.0-12.0); Neutrophils # (auto) 5.7 10 ^3/uL (1.6-8.6); Neutrophils % (auto) 70.1 % (37.0-80.0); Red Blood Cells 4.05 10^6/uL (4.0-5.20); Red Cell Distribution Width 12.9 % (11.8-14.3); White Blood Cell 8.1 10^3/uL (4.4-10.8)
[2023-04-27] MEDS: LEVOTHYROXINE SODIUM 25 MCG TAB PO SCH (06:30)
[2023-04-27] MEDS: ACCU-CHEK COMFORT CURVE STRIP VI SCH ×4 (06:30→22:06)
[2023-04-27 06:34] LABS: Alanine Aminotransferase 16 U/L (7-40); Albumin 4.2 g/dL (3.2-4.8); Alkaline Phosphatase 101 U/L (46-116); Aspartate Aminotransferase 21 U/L (13-40); BUN/Creatinine Ratio 18.5 (10.0-20.0); Blood Urea Nitrogen 20 mg/dL (9-23); Calcium 9.7 mg/dL (8.7-10.4); Chloride 106 mmol/L (98-107); Glucose 140 mg/dL (74-106); Potassium 4.4 mmol/L (3.5-5.1); Sodium 137 mmol/L (136-145)
[2023-04-27 06:35] LABS: Bilirubin, Total 1.7 mg/dL (0.2-1.0); Total Protein 6.7 g/dL (5.7-8.2)
[2023-04-27] MEDS: InsuLIN REG 1unit/0.01ml Soln (100units/ml) SC SCH ×4 (06:38→22:00)
[2023-04-27] MEDS: cefTRIAXone 1GM/50ML D5W 50 ML IV SCH (09:48)
[2023-04-27] MEDS: LISINOPRIL 10 MG TAB PO SCH (09:52)
[2023-04-27] MEDS: ASPirin 81 mg TAB PO SCH (09:53)
[2023-04-27] MEDS: METOPROLOL TARTRATE 50 MG TAB PO SCH ×2 (09:54→22:06)
[2023-04-27] MEDS: HYDROcodone-ACET 5/325MG TAB PO PRN (13:02)
[2023-04-27] MEDS ORDERED: CILOSTAZOL 100 MG TAB PO ONE (13:15)
[2023-04-27] MEDS: ATORVASTATIN 20 MG TAB PO SCH (22:06)
[2023-04-27] MEDS: CILOSTAZOL 100 MG TAB PO SCH (22:06)
[2023-04-28 05:00] VITALS: BP 139/57; PULSE 70; RESP 18; TEMP 98.4; O2SAT 98
[2023-04-28] MEDS: ACCU-CHEK COMFORT CURVE STRIP VI SCH ×4 (06:06→21:28)
[2023-04-28] MEDS: InsuLIN REG 1unit/0.01ml Soln (100units/ml) SC SCH ×4 (06:06→21:28)
[2023-04-28] MEDS: LEVOTHYROXINE SODIUM 25 MCG TAB PO SCH (06:06)
[2023-04-28 08:00] VITALS: BP 127/47; PULSE 67; PULSE 75; RESP 20; TEMP 98.5; O2SAT 94
[2023-04-28 08:35] LABS: Chloride 108 mmol/L (98-107); Sodium 139 mmol/L (136-145)
[2023-04-28 08:36] LABS: Basophils # (auto) 0.1 10 ^3/uL (0-0.2); Basophils % (auto) 0.8 % (0.0-2.0); Calcium 9.2 mg/dL (8.5-10.1); Eosinophils # (auto) 0.2 10 ^3/uL (0-0.8); Eosinophils % (auto) 2.6 % (0.0-7.0); Hematocrit 31.8 % (36.0-46.0); Lymphocytes # (auto) 2.3 10 ^3/uL (0.4-5.4); Lymphocytes % (auto) 30.5 % (10.0-50.0); Mean Corpuscular Hemoglobin 30.1 pg (28.0-32.0); Mean Corpuscular Hgb Conc. 34.6 g/dL (32.0-36.0); Monocytes # (auto) 0.5 10 ^3/uL (0-1.3); Monocytes % (auto) 6.5 % (0.0-12.0); Neutrophils # (auto) 4.4 10 ^3/uL (1.6-8.6); Neutrophils % (auto) 59.6 % (37.0-80.0); Red Blood Cells 3.66 10^6/uL (4.0-5.20); Red Cell Distribution Width 12.9 % (11.8-14.3); White Blood Cell 7.4 10^3/uL (4.4-10.8)
[2023-04-28 08:41] LABS: Blood Urea Nitrogen 20 mg/dL (9-23); Glucose 128 mg/dL (74-106)
[2023-04-28] MEDS: SODIUM CHLORIDE 0.9% 1,000 ML IV SCH (09:23)
[2023-04-28] MEDS: cefTRIAXone 1GM/50ML D5W 50 ML IV SCH (09:31)
[2023-04-28] MEDS: CILOSTAZOL 100 MG TAB PO SCH ×2 (09:33→21:23)
[2023-04-28] MEDS: ASPirin 81 mg TAB PO SCH (09:40)
[2023-04-28] MEDS: LISINOPRIL 10 MG TAB PO SCH (09:42)
[2023-04-28] MEDS: METOPROLOL TARTRATE 50 MG TAB PO SCH ×2 (09:43→21:23)
[2023-04-28 12:00] VITALS: BP 111/47; PULSE 61; RESP 20; TEMP 98.4; O2SAT 96
[2023-04-28 16:00] VITALS: BP 153/57; PULSE 65; RESP 20; TEMP 98.1; O2SAT 93
[2023-04-28] MEDS: HYDROcodone-ACET 5/325MG TAB PO PRN (16:18)
[2023-04-28 20:00] VITALS: PULSE 64; RESP 18; O2SAT 95
[2023-04-28] MEDS: ATORVASTATIN 20 MG TAB PO SCH (21:23)
[2023-04-28 22:00] VITALS: BP 185/107; PULSE 66; RESP 16; TEMP 98.7; O2SAT 97
[2023-04-29] VITALS (11 sets, daily range): BP systolic 114–164; BP diastolic 50–79; PULSE 55–77; RESP 15–20; TEMP 98.3–98.6; O2SAT 95–98
[2023-04-29] MEDS: SODIUM CHLORIDE 0.9% 1,000 ML IV SCH ×2 (02:10→18:50)
[2023-04-29 05:51] LABS: Chloride 110 mmol/L (98-107); Potassium 3.9 mmol/L (3.5-5.1); Sodium 141 mmol/L (136-145)
[2023-04-29 05:52] LABS: Anion Gap 7.9 (5-15); Carbon Dioxide 23.1 mmol/L (20-30)
[2023-04-29 05:53] LABS: Calcium 9.2 mg/dL (8.5-10.1)
[2023-04-29 05:56] LABS: Basophils # (auto) 0.1 10 ^3/uL (0-0.2); Eosinophils # (auto) 0.2 10 ^3/uL (0-0.8); Hematocrit 31.1 % (36.0-46.0); Hemoglobin 10.7 g/dL (12.2-16.2); Lymphocytes # (auto) 2.1 10 ^3/uL (0.4-5.4); Lymphocytes % (auto) 37.5 % (10.0-50.0); Mean Corpuscular Hemoglobin 29.9 pg (28.0-32.0); Mean Corpuscular Hgb Conc. 34.5 g/dL (32.0-36.0); Mean Corpuscular Volume 86.7 fL (80.0-100.0); Monocytes # (auto) 0.4 10 ^3/uL (0-1.3); Monocytes % (auto) 6.3 % (0.0-12.0); Neutrophils # (auto) 2.9 10 ^3/uL (1.6-8.6); Neutrophils % (auto) 51.2 % (37.0-80.0); Nucleated Red Blood Cells % 0.1 %; Red Blood Cells 3.59 10^6/uL (4.0-5.20); Red Cell Distribution Width 12.7 % (11.8-14.3); White Blood Cell 5.6 10^3/uL (4.4-10.8)
[2023-04-29 05:57] LABS: Glucose 95 mg/dL (74-106)
[2023-04-29 05:58] LABS: BUN/Creatinine Ratio 18.4 (10.0-20.0); Blood Urea Nitrogen 19 mg/dL (9-23)
[2023-04-29 06:17] LABS: INR 1.15 (0.9-1.15); Partial Thromboplastin Time 27.4 SEC (24.5-34.5)
[2023-04-29] MEDS: LEVOTHYROXINE SODIUM 25 MCG TAB PO SCH (06:19)
[2023-04-29] MEDS: InsuLIN REG 1unit/0.01ml Soln (100units/ml) SC SCH ×4 (06:19→22:21)
[2023-04-29] MEDS: ACCU-CHEK COMFORT CURVE STRIP VI SCH ×4 (06:19→22:19)
[2023-04-29] MEDS: cefTRIAXone 1GM/50ML D5W 50 ML IV SCH (10:34)
[2023-04-29] MEDS: CILOSTAZOL 100 MG TAB PO SCH ×2 (10:35→22:15)
[2023-04-29] MEDS: ASPirin 81 mg TAB PO SCH (10:35)
[2023-04-29] MEDS: METOPROLOL TARTRATE 50 MG TAB PO SCH ×2 (10:37→22:15)
[2023-04-29] MEDS: LISINOPRIL 10 MG TAB PO SCH (10:38)
[2023-04-29] MEDS ORDERED: fentaNYL CITRATE 100 MCG/2 ML VL ONE (15:47)
[2023-04-29] MEDS ORDERED: MIDAZOLAM HCL 2MG/2ML 2ml VIAL (1mg/ml) ONE (15:48)
[2023-04-29] MEDS ORDERED: LIDOCAINE 2%HCL (LOCAL ANESTH.) INJ 20ML MDV ONE (15:48)
[2023-04-29] MEDS ORDERED: IOHEXOL 350 MG/ML 100ML IJ ONE (17:10)
[2023-04-29] MEDS ORDERED: CLOPIDOGREL 300 MG TAB ONE (17:11)
[2023-04-29] MEDS: ATORVASTATIN 20 MG TAB PO SCH (22:16)
[2023-04-30 05:00] VITALS: BP 146/56; PULSE 77; RESP 16; TEMP 98.1; O2SAT 97
[2023-04-30 05:51] LABS: Basophils # (auto) 0.1 10 ^3/uL (0-0.2); Basophils % (auto) 0.9 % (0.0-2.0); Eosinophils # (auto) 0.1 10 ^3/uL (0-0.8); Eosinophils % (auto) 2.3 % (0.0-7.0); Hematocrit 27.9 % (36.0-46.0); Hemoglobin 9.7 g/dL (12.2-16.2); Lymphocytes # (auto) 1.3 10 ^3/uL (0.4-5.4); Mean Corpuscular Hemoglobin 30.2 pg (28.0-32.0); Mean Corpuscular Hgb Conc. 34.8 g/dL (32.0-36.0); Mean Corpuscular Volume 86.7 fL (80.0-100.0); Monocytes # (auto) 0.4 10 ^3/uL (0-1.3); Monocytes % (auto) 6.9 % (0.0-12.0); Neutrophils # (auto) 3.7 10 ^3/uL (1.6-8.6); Neutrophils % (auto) 66.9 % (37.0-80.0); Nucleated Red Blood Cells % 0.1 %; Red Blood Cells 3.22 10^6/uL (4.0-5.20); Red Cell Distribution Width 12.4 % (11.8-14.3); White Blood Cell 5.5 10^3/uL (4.4-10.8)
[2023-04-30] MEDS: LEVOTHYROXINE SODIUM 25 MCG TAB PO SCH (06:20)
[2023-04-30] MEDS: ACCU-CHEK COMFORT CURVE STRIP VI SCH ×4 (06:26→22:00)
[2023-04-30] MEDS: InsuLIN REG 1unit/0.01ml Soln (100units/ml) SC SCH ×4 (06:27→22:27)
[2023-04-30 06:29] LABS: Chloride 109 mmol/L (98-107); Potassium 3.8 mmol/L (3.5-5.1); Sodium 139 mmol/L (136-145)
[2023-04-30 06:30] LABS: Anion Gap 8.3 (5-15); Carbon Dioxide 21.7 mmol/L (20-30)
[2023-04-30 06:35] LABS: BUN/Creatinine Ratio 15.2 (10.0-20.0); Blood Urea Nitrogen 14 mg/dL (9-23); Glucose 140 mg/dL (74-106)
[2023-04-30 08:00] VITALS: PULSE 72; O2SAT 97
[2023-04-30 08:49] VITALS: BP 139/43; PULSE 81; RESP 18; TEMP 98.4; O2SAT 96
[2023-04-30] MEDS: cefTRIAXone 1GM/50ML D5W 50 ML IV SCH (09:34)
[2023-04-30] MEDS: METOPROLOL TARTRATE 50 MG TAB PO SCH ×2 (09:36→22:22)
[2023-04-30] MEDS: ASPirin 81 mg TAB PO SCH (09:36)
[2023-04-30] MEDS: CLOPIDOGREL BISULFATE 75 MG TAB PO SCH (09:37)
[2023-04-30] MEDS: CILOSTAZOL 100 MG TAB PO SCH ×2 (09:37→22:21)
[2023-04-30] MEDS: LISINOPRIL 10 MG TAB PO SCH (09:43)
[2023-04-30] MEDS: SODIUM CHLORIDE 0.9% 1,000 ML IV SCH (11:30)
[2023-04-30 13:12] VITALS: BP 125/47; PULSE 64; RESP 18; TEMP 98.1; O2SAT 95
[2023-04-30 20:00] VITALS: PULSE 64; PULSE 75; PULSE 95; O2SAT 97
[2023-04-30 22:00] VITALS: BP 154/60; PULSE 83; RESP 16; TEMP 98.4; O2SAT 98
[2023-04-30] MEDS ORDERED: ATORVASTATIN 20 MG TAB PO SCH (22:00)
[2023-05-01] MEDS: LEVOTHYROXINE SODIUM 25 MCG TAB PO SCH (06:23)
[2023-05-01] MEDS: InsuLIN REG 1unit/0.01ml Soln (100units/ml) SC SCH ×2 (06:25→12:23)
[2023-05-01] MEDS: ACCU-CHEK COMFORT CURVE STRIP VI SCH ×2 (06:25→12:25)
[2023-05-01] MEDS: SODIUM CHLORIDE 0.9% 1,000 ML IV SCH (07:45)
[2023-05-01 08:00] VITALS: PULSE 83; O2SAT 97
[2023-05-01 08:26] LABS: Chloride 110 mmol/L (98-107); Potassium 3.4 mmol/L (3.5-5.1); Sodium 140 mmol/L (136-145)
[2023-05-01 08:27] LABS: Anion Gap 8.7 (5-15); Carbon Dioxide 21.3 mmol/L (20-30)
[2023-05-01 08:28] LABS: Calcium 8.8 mg/dL (8.5-10.1)
[2023-05-01 08:33] LABS: BUN/Creatinine Ratio 9.5 (10.0-20.0); Blood Urea Nitrogen 9 mg/dL (9-23); Glucose 141 mg/dL (74-106)
[2023-05-01 09:06] LABS: Basophils # (auto) 0 10 ^3/uL (0-0.2); Basophils % (auto) 0.7 % (0.0-2.0); Eosinophils # (auto) 0.2 10 ^3/uL (0-0.8); Eosinophils % (auto) 3.1 % (0.0-7.0); Hematocrit 27.6 % (36.0-46.0); Hemoglobin 8.9 g/dL (12.2-16.2); Lymphocytes # (auto) 1.5 10 ^3/uL (0.4-5.4); Lymphocytes % (auto) 24.5 % (10.0-50.0); Mean Corpuscular Hemoglobin 28.6 pg (28.0-32.0); Mean Corpuscular Hgb Conc. 32.4 g/dL (32.0-36.0); Mean Corpuscular Volume 88.3 fL (80.0-100.0); Monocytes # (auto) 0.4 10 ^3/uL (0-1.3); Monocytes % (auto) 6.8 % (0.0-12.0); Neutrophils # (auto) 3.9 10 ^3/uL (1.6-8.6); Neutrophils % (auto) 64.9 % (37.0-80.0); Nucleated Red Blood Cells % 0.1 %; Red Blood Cells 3.12 10^6/uL (4.0-5.20); Red Cell Distribution Width 12.7 % (11.8-14.3)
[2023-05-01 09:21] VITALS: BP 160/51; PULSE 79; RESP 18; TEMP 98.6; O2SAT 94
[2023-05-01] MEDS ORDERED: POTASSIUM EFFERVESENT TAB 25 MEQ PO ONE (09:30)
[2023-05-01] MEDS: cefTRIAXone 1GM/50ML D5W 50 ML IV SCH (09:43)
[2023-05-01] MEDS: METOPROLOL TARTRATE 50 MG TAB PO SCH (09:44)
[2023-05-01] MEDS: LISINOPRIL 10 MG TAB PO SCH (09:44)
[2023-05-01] MEDS: CLOPIDOGREL BISULFATE 75 MG TAB PO SCH (09:45)
[2023-05-01] MEDS: ASPirin 81 mg TAB PO SCH (09:45)
[2023-05-01] MEDS: CILOSTAZOL 100 MG TAB PO SCH (09:45)
[2023-05-01] MEDS: hydrALAZINE HCL 20 MG/ML VL IV PRN (10:57)
[2023-05-01 12:35] VITALS: BP 146/54; PULSE 72; RESP 18; TEMP 98.9; O2SAT 96
[2023-05-01] MEDS ORDERED: MET50T PO (14:27)
[2023-05-01 16:53] VITALS: BP 148/48; PULSE 77; RESP 17; TEMP 98.6; O2SAT 96
[2023-05-01 17:18] VITALS: BP 148/48; PULSE 77; RESP 17; TEMP 98.6; O2SAT 96
[2023-05-01 17:35] VITALS: BP 148/48; PULSE 77; RESP 17; TEMP 98.6; O2SAT 96
== END 2023-05-01 19:00 | disposition home or self-care (01) | DRG 252 ==
LOC: ER 02:58 → EDBD 02:58 → EDUNIT# 02:58 → TELE 07:35 → TELE-EAST 21:12
PROVIDERS: ADMIT Internal Medicine; ATTEND Student in an Organized Health Care Education/Training Program
PROC: 047M3DZ Dilation of Right Popliteal Artery with Intraluminal Device, Percutaneous Approach (ICD-10-PCS; principal; 2023-04-29)
PROC: B41F1ZZ Fluoroscopy of Right Lower Extremity Arteries using Low Osmolar Contrast (ICD-10-PCS; 2023-04-29)
DX: T82.856A Stenosis of peripheral vascular stent, initial encounter (principal); N17.0 Acute kidney failure with tubular necrosis; N13.6 Pyonephrosis; E87.1 Hypo-osmolality and hyponatremia; E11.649 Type 2 diabetes mellitus with hypoglycemia without coma; I16.0 Hypertensive urgency; E11.65 Type 2 diabetes mellitus with hyperglycemia; N18.9 Chronic kidney disease, unspecified; I12.9 Hypertensive chronic kidney disease with stage 1 through stage 4 chronic kidney disease, or unspecified chronic kidney disease; E11.22 Type 2 diabetes mellitus with diabetic chronic kidney disease; E11.51 Type 2 diabetes mellitus with diabetic peripheral angiopathy without gangrene; R55 Syncope and collapse; E03.9 Hypothyroidism, unspecified; Y83.8 Other surgical procedures as the cause of abnormal reaction of the patient, or of later complication, without mention of misadventure at the time of the procedure; I70.229 Atherosclerosis of native arteries of extremities with rest pain, unspecified extremity; E11.42 Type 2 diabetes mellitus with diabetic polyneuropathy; Z79.02 Long term (current) use of antithrombotics/antiplatelets; Z79.899 Other long term (current) drug therapy; Z82.49 Family history of ischemic heart disease and other diseases of the circulatory system; Z83.3 Family history of diabetes mellitus; Z95.0 Presence of cardiac pacemaker; Z91.148 Patient's other noncompliance with medication regimen for other reason; Y92.89 Other specified places as the place of occurrence of the external cause
CPT/HCPCS: 36415; 37226; 70450; 71045; 74176; 75710; 76937; 80048; 80053; 81001; 82746; 82962; 84484; 85025; 85610; 85730; 86850; 86900; 86901; 87086; 93005; 93886; 93925; 95819; 96365; 96375; 97110; 97116; 97163; 97530; 99152; C1894; G0378; J0696; J1815; J2250

== ENCOUNTER → 2023-06-17 | Outpatient (CLI) | payer OTHER ==
[~2023-06-17] MED LIST changes: +MET50T PO; -METO1TAB9 PO
== END | disposition home or self-care (01) ==
LOC: Rad HDHVI 09:44
PROVIDERS: ATTEND Internal Medicine Cardiovascular Disease
DX: I08.3 Combined rheumatic disorders of mitral, aortic and tricuspid valves (principal); I10 Essential (primary) hypertension
CPT/HCPCS: 93306; 93925

== ENCOUNTER → 2023-07-22 | Outpatient (CLI) | payer OTHER | END | disposition home or self-care (01) | LOC: Rad HDHVI 10:53 | PROVIDERS: ATTEND Internal Medicine Cardiovascular Disease | DX: I65.23 Occlusion and stenosis of bilateral carotid arteries (principal); I10 Essential (primary) hypertension | CPT/HCPCS: 93880 ==

== ENCOUNTER → 2023-07-23 | Outpatient (CLI) | payer OTHER ==
[2023-07-23 10:21] LABS: Basophils # (auto) 0 10 ^3/uL (0-0.2); Basophils % (auto) 0.7 % (0.0-2.0); Eosinophils # (auto) 0.2 10 ^3/uL (0-0.8); Hematocrit 28.9 % (36.0-46.0); Hemoglobin 9.8 g/dL (12.2-16.2); Lymphocytes # (auto) 1.8 10 ^3/uL (0.4-5.4); Lymphocytes % (auto) 28.8 % (10.0-50.0); Mean Corpuscular Hemoglobin 29.9 pg (28.0-32.0); Mean Corpuscular Volume 87.9 fL (80.0-100.0); Monocytes # (auto) 0.4 10 ^3/uL (0-1.3); Monocytes % (auto) 6.1 % (0.0-12.0); Neutrophils # (auto) 3.9 10 ^3/uL (1.6-8.6); Neutrophils % (auto) 61.4 % (37.0-80.0); Nucleated Red Blood Cells % 0.1 %; Red Blood Cells 3.29 10^6/uL (4.0-5.20); Red Cell Distribution Width 12.8 % (11.8-14.3); White Blood Cell 6.3 10^3/uL (4.4-10.8)
[2023-07-23 10:45] LABS: Urine Bacteria FEW /hpf (None Seen); Urine Blood Negative /uL (Negative); Urine Clarity Clear (Clear); Urine Protein, UAD Negative (Negative); Urine Specific Gravity 1.008 (1.001-1.035); Urine Urobilinogen Normal (Negative); Urine WBC 9 /hpf (0 - 5)
[2023-07-23 10:52] LABS: Urine Color Yellow (Yellow)
[2023-07-23 11:13] LABS: Alanine Aminotransferase 23 U/L (7-40); Alkaline Phosphatase 113 U/L (46-116); Anion Gap 6 (5-15); BUN/Creatinine Ratio 10.3 (10.0-20.0); Blood Urea Nitrogen 12 mg/dL (9-23); Carbon Dioxide 27 mmol/L (20-30); Chloride 105 mmol/L (98-107); Glucose 108 mg/dL (74-106); Potassium 4.6 mmol/L (3.5-5.1); Sodium 138 mmol/L (136-145); Triglycerides 140 mg/dL (< 150)
[2023-07-23 11:14] LABS: Albumin 4.5 g/dL (3.2-4.8); Aspartate Aminotransferase 21 U/L (13-40); LDL Cholesterol 90 mg/dL (< 100)
[2023-07-23 11:15] LABS: Bilirubin, Total 1.5 mg/dL (0.2-1.0); Cholesterol 154 mg/dL (< 200); HDL Cholesterol 43 mg/dL (40-59); Total Protein 6.9 g/dL (5.7-8.2)
[2023-07-23 14:59] LABS: Free T4 (Free Thyroxine) 1.22 ng/dL (0.89-1.76)
== END | disposition home or self-care (01) ==
LOC: LAB 09:50
DX: I10 Essential (primary) hypertension (principal); E11.65 Type 2 diabetes mellitus with hyperglycemia
CPT/HCPCS: 36415; 80053; 80061; 81001; 82607; 83036; 84439; 84443; 85025

== ENCOUNTER 2023-08-08 11:46 | Emergency (ER) | payer OTHER ==
[~2023-08-08] VITALS: Ht 160 cm; Wt 58.0 kg
[2023-08-08 14:39] VITALS: BP 129/59; PULSE 61; RESP 18; O2SAT 96
[2023-08-08] MEDS ORDERED: ACET-1080 PO (15:15)
[2023-08-08] MEDS ORDERED: ACETAMINOPHEN 500 MG TAB PO ONE ×2 (15:15→15:20)
[2023-08-08 15:36] VITALS: TEMP 97.8
== END 2023-08-08 15:42 | disposition home or self-care (01) ==
LOC: EDBD 11:46 → EDUNIT# 11:46 → ER 11:46
DX: M19.071 Primary osteoarthritis, right ankle and foot (principal); I10 Essential (primary) hypertension; E11.9 Type 2 diabetes mellitus without complications; Z98.890 Other specified postprocedural states; Z79.899 Other long term (current) drug therapy
CPT/HCPCS: 73630